=== PATIENT | female | born 1940 | race Caucasian/White ===

== ENCOUNTER 2019-03-11 10:12 | Day surgery (SDC) | payer MEDICARE, OTHER, SELFPAY ==
[2019-03-08 12:50] VITALS: BMI 26.4
[2019-03-11] VITALS (7 sets, daily range): BP systolic 174–199; BP diastolic 84–94; PULSE 65–73; RESP 12–18; TEMP 36.1–36.2; O2SAT 95–99; BMI 26.4
[2019-03-11] MEDS: LACTATED RINGERS 1,000 ML 100 ML IV ×2 (12:05→15:11)
[2019-03-11] MEDS: CEFAZOLIN 2 GM/100 ML FROZ.PIGGY IV (13:15)
--- NOTE | 2019-03-11 13:16 | P.OP_ITS ---
Operative Date/Time/Diagnoses Date of procedure: 03/11/19 Time of procedure: 13:16 Pre-op diagnosis: Right great toe arthritis Post-op diagnosis: same Procedure & Clinicians Procedure: Right first metatarsophalangeal joint arthrodesis Same procedure as scheduled: Yes Indications: Painful great toe joint. Conservative measures failed to alleviate her pain and she wished to have surgical intervention at this time. Surgeon: Pinky Cotto Click Yes if Unassisted: Yes Anesthesia Type: General Operative Notes Closure Type: primary Specimen(s): none sent Prosthetic devices, grafts, tissues, transplants, or devices: [place] great toe fusion plate, straight. 4.0 cannulated screw. 2.7 locking screws x5 DBM 1cc bone putty by [employer] Estimated Blood Loss (mL): 30 Blood products transfused: none Tourniquet time (min): 78 Procedure in detail: The patient was brought to the operating room and placed on the operating table in the supine position. A tourniquet was placed about the patient's right thigh. After induction of general anesthesia the foot and ankle were prepped and draped in the usual aseptic manner. The tourniquet was inflated. Incision was made over the dorsal aspect of the right 1st metatarsophalangeal joint. The incision was deepened through subcutaneous tissues being careful to identify and retract all vital neurovascular structures. All bleeders were cauterized and ligated necessary. A significant amount of degenerative exostoses were noted to the dorsal, medial and lateral 1st metatarsophalangeal joint. The capsule was opened and I also noted an enlarged medial eminence of the 1st metatarsal head. A saw was used to resect the medial eminence enlargement as well as some of the more prominent areas of spurring at the 1st metatarsophalangeal joint. The joint showed about 2/3 loss of the articular cartilage on the 1st metatarsal head and less than that on the phalangeal base. A guidewire was placed in the 1st metatarsal head and a reamer was used to resect the cartilage from the 1st metatarsal head and prepare the joint. Guidewire was removed. It was too tight to do this to the proximal phalanx base. Instead, a currette, saw were used to prepare the phalanx base. Also, subchondral drilling was performed to either side with a small drill as well as some fish scaling using a small osteotome. The area was irrigated with copious amount of normal sterile saline. Temporary fixation across the joint was placed with a guidewire and this was checked under C-arm to be in appropriate alignment. A plate was chosen and any further reduction of prominences dorsally was performed with a rasp and rongeur. Using the aid of fluoroscopy, the guide wire was used as cannulation for the drill for a lag screw from the distal medial to proximal lateral 1st metatarsal phalangeal joint. Confirmed appropriate in all 3 planes, a partially threaded screw was placed and the guidewire removed. Good strength and reduction of the former joint. Plate was placed and with the aid of fluoroscopy a series of locking screws were placed across the plate and steadied the joint well. [place] through this process it appeared a small portion of the base of the prox phalanx medially pulled through where the lag screw was located. With the sturdiness of the the screw holding the remaining portion of bone and the plate also being so sturdy, it was decided to leave the lag screw in and continue since it was not detracting from the fixation. Final screws were placed and this was checked on C-arm. The area is irrigated with copious amounts normal sterile saline. I did place 1cc DBM putty on the fracture site to help with possibly some coverage but again checked, and no motion at the joint nor loosening of the screw. The tourniquet was deflated and prompt hyperemic response was seen to the foot. And no motion was noted at the 1st MTPJ. Subcutaneous closure was performed using Vicryl and nylon was used to close the skin. A sterile lightly compressive dressing was placed on the foot and he was placed in his postoperative boot. He was transferred to the PACU with vital signs stable and vascular status intact. Complications: none Post-operative Condition: stable Disposition: PACU Plan for aftercare: Following a period of postoperative monitoring, the patient will be discharged home on written and oral postoperative instructions including keeping the dressing dry and intact, avoiding significant ambulation on the foot (NWB), icing and elevating the foot when seated home. DVT prevention techniques have been reviewed. She has her post op appts scheduled and instructions reviewed. Also I reviewed the surgery and screw with fractured edge with her, and plan. She voiced understanding. s/p week 4 x-rays to be taken, no weight to the foot 4-6 wks.
--- NOTE | 2019-03-11 13:16 | PM.PREOP ---
Pre-operative Note Interval Note History & Physical reviewed/Exam performed by Physician: Yes Changes to H&P: No
[2019-03-11] MEDS: BUPIVACAINE 0.5% (PF) VIAL 30 ML INJ (13:56)
--- NOTE | 2019-03-11 15:49 | SUR.PHASEII ---
pt is very anxious to catch the ferry and go home. Dr. Cotto came to see pt. and states she feels she is able to be d/bud pt wants to catch the ferry home.
== END 2019-03-11 16:00 | disposition home or self-care (01) ==
LOC: OR 10:15
PROVIDERS: PCP Family Medicine; Visit Provider Podiatrist
PROC: (CPT 26535; principal; 2019-03-11 11:45)
DX: M19.071 Primary osteoarthritis, right ankle and foot (principal); I10 Essential (primary) hypertension
CPT/HCPCS: 28750; J0690; J1100; J2405; J2704; J3010